=== PATIENT | male | born 1965 | race Caucasian/White ===

== ENCOUNTER → 2024-08-12 | Outpatient (CLI) | payer OTHER, SELFPAY ==
--- NOTE | 2024-08-12 14:45 | CT_ITS ---
PROCEDURE: LIMITED CHEST CT CARDIAC ONLY 08/12/2024 REASON FOR EXAM: HYPERLIPIDEMIA TECHNIQUE: LIMITED CHEST CT CARDIAC ONLY CONTRAST: None One or more dose reduction techniques were used (e.g., Automated exposure control, adjustment of the mA and/or kV according to patient size, use of iterative reconstruction technique). RADIATION DOSE SUMMARY: CTDlvol: 12.19 mGy DLP: 195.04 mGycm COMPARISON: None FINDINGS: Small benign-appearing mediastinal lymph nodes. Minimal coronary artery calcification. Minimal linear scarring in the anterior medial aspect of the right lower lobe as well as in the left lower lobe. CT/Limited Chest CT Cardiac Only IMPRESSION: Minimal coronary artery calcification. Reading Location: [facility]
--- NOTE | 2024-08-12 16:47 | CA.SCORE ---
Calcium Scoring Date of Study:: 08/12/24 Indications Indications: Hyperlipidemia Coronary Calcium Scoring: High-resolution Computed Tomographic imaging of the chest was performed on [08/12/2024], with particular attention paid to the coronary arteries. Images from the examination were analyzed for the presence and extent of coronary artery calcification , using coronary calcium quantification software. The patient tolerated the procedure well and there were no complications. The results of the coronary calcification analysis are provided below. Findings Coronary Artery Left Main (LM): 0 Left Anterior Descending (LAD): 22.6 Left Circumflex (LCX): 8.62 Right Coronary Artery (RCA): 1.3 Total Agatston Score: 32.52 Percentile Rankin%-50% Calcium Scoring Interpretation: Different methods to categorize the overall amount of coronary plaque. Overall amount CAC SIS Visual of coronary plaque P1 Mild -100 <2 1-2 vessels with mild amount of plaque P2 Moderate 101-300 3-4 1-2 vessels with moderate amount, 3 vessels with mild amount of plaque P3 Severe 301-999 5-7 3 vessels with moderate amount, 1 vessel with severe amount of plaque P4 Extensive >1000 >8 2-3 vessels with severe amount of plaque Calcium Score: Mild: 1-2 vessels w/mild amount of plaque Conclusion: Mild atherosclerotic plaque
== END | disposition home or self-care (01) ==
LOC: CT 14:43
PROVIDERS: PCP Nurse Practitioner Gerontology; Referring Provider Nurse Practitioner Gerontology; Visit Provider Nurse Practitioner Gerontology
DX: E78.49 Other hyperlipidemia (principal); I25.10 Atherosclerotic heart disease of native coronary artery without angina pectoris
CPT/HCPCS: 75571; 76380